=== PATIENT | female | born 1940 | race Caucasian/White ===

== ENCOUNTER → 2017-07-07 | Outpatient (CLI) | payer MEDICARE, OTHER ==
[~2017-07-07] MED LIST: ALBUTEROL-200 PUFFS/ IH; ALBUTEROL2.5 MG/NEB IN; AMOXICOT500 M1 PO; ASPIRIN 81MG TA81 MG PO; CIPRO 250MG TA250 MG PO; CIPRO 500MG TA500 MG PO; DIAZEPAM10 MG PO; HYDROCODONE-APA1 TA1 PO; LEVOTHYROXIN0.025 M2 PO; LEVOTHYROXINE0.05 M3 PO; LEVOTHYROXINE0.05 MG NG; LEVOTHYROXINE0.1 MG PO; MECLIZINE 25MG25 MG PO; MIRALAX(PO17 GM/1 PA PO; MIRALAX17 GM/PACK PO; OMNICEF 300 MG300 MG PO; PREDNISONE 20MG20 MG PO; PREDNISONE20 MG PO; PYRIDIUM 200MG200 MG PO; RAMIPRIL5 MG PO; SINGULAIR 10 MG10 MG PO; SPIRIVA18 MCG IH; SYMBICORT 10.10.2 M1 IH; TESSALON PERLE100 M1 PO; VERAPAMIL HCL120 M2 PO; VERAPAMIL SR 2240 MG PO; ZITHROMAX Z-PA250 M2 PO; ZOFRAN ODT4 MG PO
[2017-07-07 16:01] LABS: LYMPH # 3.1 K/mm3 (0.7-4.5); LYMPH % 29.6 % (10-50.0)
[2017-07-07 18:04] LABS: BUN 10 mg/dL (7-18)
[2017-07-07 18:08] LABS: GFR (ESTIMATED) 70 ML/MIN (59-)
--- NOTE | 2017-07-11 15:43 | RADIOLOGY REPORT PS360 ---
MRI-BRAIN W/O Ordering Physician: Boogie Marquez MD Patient Age: 76 years: Female HISTORY: TREMOR, SHUFFLING GAIT, HALLUCINATION 3 months TECHNIQUE : Noncontrast Multiplanar FLAIR, T1, T2 weighted images along with axial diffusion/ADC imaging performed on 1.5 T. Siemens, MRI. Postcontrast imaging.. COMPARISON : 06/09/2016 MRI brain without contrast FINDINGS Diffusion images reveal no acute infarct. Diffuse cerebral atrophy appropriate to slightly generous for age.. This yields dilatation the lateral ventricles more so than third ventricle. Also prominent sulci. The ventricular dilatation is generous but generally corresponds to the degree of cerebral atrophy . No mass lesion or mass effect. No abnormal areas of enhancement. No territorial infarct. No subdural collection. Chronic small vessel deep white matter high signal ischemic/gliotic foci are seen throughout the periventricular and subcortical deep white matter. Overall appearance is similar to previous study of numerous high signal areas bilaterally most evident towards the deep white matter left frontal lobe more than right again seen. Dilated perivascular space, less likely old lacunar, noted at floor the left basal ganglia medially. This dates back to 2011 CT head appears stable feature by CT.. On the the axial slice just superior to this, I would note that there also some upper normal signal at the gyrus medial to the temporal horn left lateral ventricle..- This gyrus noted to be slightly atrophic on the left vs right. This is the region of the amygdala & hippocampus.,, just medial to the temporal horn. The subtle observation unchanged since prior MRI study 2016udy, which is important.Cannot exclude minor old insult or injury account for the slight variant signal... However if any history of of temporal lobe seizures or features to suggest medial temporal sclerosis, diagnosis clinically the subtle observation could be of relevance &. Requires clinical correlation. If overall symptoms should progress consider follow-up with contrast MRI brain study in 4-6 months for follow-up. The cerebellopontine angle, cerebellum, and brainstem are unremarkable.. CP angles clear. IACs unremarkable. Mastoid air cells satisfactory. Orbits satisfactory, unchanged. Paranasal sinuses clear with only scant mucosal thickening anterior left ethmoid air cells. Barely evident. Normal flow voids dural venous sinuses.Unremarkable pituitary. Skull irregularity at the left convexity likely from previous ad hole, craniotomy defect. No remarkable atrophy or encephalomalacia beneath this area no subdural collection evident . IMPRESSION:-------- 1. No acute intracranial pathology. No significant change since 05/30/2016 MRI brain 2. Chronic small vessel deep white matter ischemic changes are again seen throughout the cerebral hemispheres bilaterally, left slightly more so than right. Unchanged since 2016 MRI brain. 3. . Cerebral atrophy 4. 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 Subtle observation: Generous perivascular space vs old lacunar medial floor of left basal ganglia. Immediately adjacent/above this I would note upper normal signal & slight relative atrophy of gyrus just medial to the temporal horn left lateral ventricle, as discussed in text. Appearance here unchanged as prior studies but noted. Of doubtful significance significance but noted 6. If Symptoms persist or progression may want to consider a follow-up MR with brain with contrast 6 months
== END ==
LOC: RAD 14:30
PROVIDERS: Internal Medicine Adolescent Medicine
DX: R25.1 Tremor, unspecified (principal); R26.89 Other abnormalities of gait and mobility; R44.3 Hallucinations, unspecified; G25.0 Essential tremor